=== PATIENT | female | born 1975 ===

== ENCOUNTER 2023-04-17 16:56 | Inpatient (IN) ==
[2023-04-17 18:52] LABS: Urine Appearance Cloudy; Urine Bilirubin Negative (Negative); Urine Blood Negative (Negative); Urine Color Straw; Urine Glucose Negative (Negative); Urine Ketones Trace (Negative); Urine Nitrite Negative (Negative); Urine Protein Negative (Negative); Urine Specific Gravity 1.002 (1.002-1.030); Urine Urobilinogen Negative (Negative)
[2023-04-17 19:41] LABS: Urine Benzodiazepine Screen None Detected (None Detect); Urine Cannabinoids Screen None Detected (None Detect); Urine Opiates Screen None Detected (None Detect)
[2023-04-17 19:46] LABS: ABS Basophils 0.1 10^3/uL (0.0-0.1); ABS Eosinophils 0.1 10^3/uL (0.0-0.5); ABS Lymphocytes 1.9 10^3/uL (1.0-4.8); ABS Monocytes 0.7 10^3/uL (0.0-0.9); ABS Neutrophils 4.4 10^3/uL (1.5-7.6); ABS Nucleated RBC 0.01 10^3/ul; Eosinophil % 1.9 %; Hematocrit 40.1 % (35-45); Hemoglobin 14.1 g/dL (11.5-14.3); Lymphocyte % 26.3 %; Mean Corpuscular Hemoglobin 31.3 pg (27-33); Mean Corpuscular Hgb Conc 35.3 g/dL (31-36); Mean Corpuscular Volume 88.8 fL (80-97); Mean Platelet Volume 7.8 fL (7.5-11.2); Nucleated Red Blood Cells % 0.1 /100 WBC (0.0-0.4); Platelet Count 355 10^3/uL (150-450); Red Blood Count 4.51 10^6/uL (3.63-4.92); Red Cell Distribution Width 13.5 % (12-17); White Blood Count 7.2 10^3/uL (3.8-11.8)
[2023-04-17 20:10] LABS: ALT 44 U/L (7-52); AST 51 U/L (13-39); Albumin 4.1 g/dL (3.2-5.2); Albumin/Globulin Ratio 1.4 (1-3); Alkaline Phosphatase 52 U/L (35-149); Anion Gap 8 mmol/L (2-16); Blood Urea Nitrogen 9 mg/dL (6-24); CO2 Carbon Dioxide 22 mmol/L (22-32); Calcium 9.2 mg/dL (8.6-10.3); Chloride 104 mmol/L (101-111); Creatinine, Serum 0.74 mg/dL (0.51-0.95); Glucose 193 mg/dL (70-100); Potassium 3.5 mmol/L (3.5-5.0); Sodium 134 mmol/L (135-145); Total Protein 7.1 g/dL (6.4-8.9); eGFR CKD-EPI 100.4 (>60)
[2023-04-17 20:33] LABS: Alcohol, S < 13 mg/dL (<13); Salicylate < 2.50 mg/dL (<30)
[2023-04-17 20:37] LABS: Acetaminophen < 15 mcg/mL
[2023-04-17 20:48] LABS: TSH Ultra Thyroid Stim Horm 0.66 mcIU/mL (0.34-5.60)
[2023-04-17] MEDS ORDERED: Lorazepam PYXIS KEY PRN (21:42)
[2023-04-17] MEDS ORDERED: LORazepam 2 mg VIAL 1 ml IM ONE (21:42)
[2023-04-18] MEDS: Vitamin THERAPEUTIC TAB PO SCH ×2 (09:19→10:16)
[2023-04-18] MEDS ORDERED: OLANZapine 10 mg TAB*ODT PO PRN (10:07)
[2023-04-19] MEDS: Vitamin THERAPEUTIC TAB PO SCH (08:07)
[2023-04-19] MEDS ORDERED: chlorproMAZINE 25 MG/ML 2 ML (50 MG) ONE (22:35)
[2023-04-20] MEDS: Vitamin THERAPEUTIC TAB PO SCH (08:44)
[2023-04-20 12:24] LABS: Albumin 3.9 g/dL (3.2-5.2); Calcium 9.2 mg/dL (8.6-10.3); Potassium 4.3 mmol/L (3.5-5.0); Total Bilirubin 0.4 mg/dL (0.2-1.0)
[2023-04-20 12:30] LABS: Albumin/Globulin Ratio 1.4 (1-3); Creatinine, Serum 0.74 mg/dL (0.51-0.95); Globulin 2.7 g/dL (2-4); Total Protein 6.6 g/dL (6.4-8.9); eGFR CKD-EPI 100.4 (>60)
[2023-04-21] MEDS: Vitamin THERAPEUTIC TAB PO SCH (09:12)
[2023-04-21] MEDS ORDERED: Nicotine GUM 2MG FRUIT FLAVOR PO ONE (11:33)
[2023-04-22] MEDS: Vitamin THERAPEUTIC TAB PO SCH (08:43)
[2023-04-22] MEDS: Nicotine GUM 2MG FRUIT FLAVOR PO PRN ×3 (08:45→17:09)
[2023-04-23] MEDS: Vitamin THERAPEUTIC TAB PO SCH (09:06)
[2023-04-23] MEDS: Nicotine GUM 2MG FRUIT FLAVOR PO PRN ×2 (11:20→20:58)
[2023-04-23] MEDS: Al Hydrox/Mg Hydrox/Simet LIQ 30 ML UDC PO PRN (13:40)
[2023-04-24] MEDS: Vitamin THERAPEUTIC TAB PO SCH (09:28)
[2023-04-24] MEDS: Nicotine GUM 2MG FRUIT FLAVOR PO PRN ×2 (09:29→14:52)
[2023-04-24] MEDS: Al Hydrox/Mg Hydrox/Simet LIQ 30 ML UDC PO PRN (17:38)
[2023-04-25] MEDS: Al Hydrox/Mg Hydrox/Simet LIQ 30 ML UDC PO PRN ×2 (07:48→14:19)
[2023-04-25] MEDS: Vitamin THERAPEUTIC TAB PO SCH (08:26)
[2023-04-25] MEDS: Nicotine GUM 2MG FRUIT FLAVOR PO PRN ×2 (09:13→17:26)
[2023-04-26] MEDS: Vitamin THERAPEUTIC TAB PO SCH (08:30)
[2023-04-26] MEDS: Nicotine GUM 2MG FRUIT FLAVOR PO PRN ×5 (09:50→20:23)
[2023-04-27] MEDS: Nicotine GUM 2MG FRUIT FLAVOR PO PRN ×3 (03:54→14:54)
[2023-04-27] MEDS: Vitamin THERAPEUTIC TAB PO SCH (07:48)
[2023-04-27 09:34] VITALS: BP 98/56
[2023-04-27] MEDS: Al Hydrox/Mg Hydrox/Simet LIQ 30 ML UDC PO PRN (12:20)
== END 2023-04-27 14:15 | disposition home or self-care (01) | DRG 885 ==
LOC: ED 16:56 → EDHOLD 22:59 → BSU 23:46
PROVIDERS: ADMIT Psychiatry & Neurology Psychiatry; ATTEND Psychiatry & Neurology Psychiatry